=== PATIENT | male | born 1965 | race Caucasian/White ===

== ENCOUNTER 2021-04-13 22:46 | Emergency (ER) | payer BC ==
[2021-04-14 00:32] LABS: HEMOGLOBIN 15.8 gm/dl (14.0-17.5); RED BLOOD COUNT 4.96 M/UL (4.20-5.50); WHITE BLOOD COUNT 9.4 K/UL (4.5-11.0)
[2021-04-14 00:56] LABS: BUN/CREATININE RATIO 12 (0-10)
== END 2021-04-14 01:41 | disposition home or self-care (01) ==
LOC: ER1 22:46
PROVIDERS: Nurse Practitioner
DX: K59.00 Constipation, unspecified (principal); I48.91 Unspecified atrial fibrillation; E78.5 Hyperlipidemia, unspecified; I10 Essential (primary) hypertension
CPT/HCPCS: 71045; 80053; 82550; 82553; 83874; 84484; 85025; 93005; 99285